=== PATIENT | male | born 1965 | race Caucasian/White ===

== ENCOUNTER 2024-12-25 08:46 | Emergency (ER) | payer BC, OTHER ==
[2024-12-25] MEDS ORDERED: Boostrix 0.5 ML (Tdap) VIAL (>/=7 yrs of age) ONE (09:21)
[2024-12-25] MEDS ORDERED: Morphine 2 MG/ML VIAL ONE ×2 (09:21→13:16)
[2024-12-25] MEDS ORDERED: HYDROcodone/Acetaminophen 5/325 mg Tablet ONE (11:51)
[2024-12-25] MEDS ORDERED: fentaNYL 50 mcg/mL 1 mL Vial ONE (12:14)
== END 2024-12-25 13:34 | disposition home or self-care (01) ==
LOC: ERS 08:46
DX: S93.125A Dislocation of metatarsophalangeal joint of left lesser toe(s), initial encounter (principal); S92.352A Displaced fracture of fifth metatarsal bone, left foot, initial encounter for closed fracture; S92.412A Displaced fracture of proximal phalanx of left great toe, initial encounter for closed fracture; S60.512A Abrasion of left hand, initial encounter; S60.511A Abrasion of right hand, initial encounter; S00.01XA Abrasion of scalp, initial encounter; S00.81XA Abrasion of other part of head, initial encounter; Z23 Encounter for immunization; V47.5XXA Car driver injured in collision with fixed or stationary object in traffic accident, initial encounter; W22.11XA Striking against or struck by driver side automobile airbag, initial encounter; Y93.89 Activity, other specified
CPT/HCPCS: 28630; 70450; 70486; 71045; 72125; 90471; 90715; 96374; 96375; 96376; G0390; J2272; J3010